=== PATIENT | male | born 1965 | race Hispanic/Latino ===

== ENCOUNTER 2017-09-30 06:57 | Day surgery (SDC) | payer MEDICAID ==
[~2017-09-30] VITALS: Ht 167.6 cm; Wt 69.7 kg
[~2017-09-30 06:57] MED LIST: SODIUM CHLORIDE 0.9% 1000ML 1,000 ML IV ONE
[2017-09-30 07:07] VITALS: BP 149/79
[2017-09-30] MEDS ORDERED: PROPOFOL 10 MG/ML 20ML VIAL IV ONE (08:49)
[2017-09-30] MEDS ORDERED: SIMV10TA6 PO (09:10)
[2017-09-30] MEDS ORDERED: FOLI1TAB85 PO (09:10)
[2017-09-30] MEDS ORDERED: CHOL200016 PO (09:10)
[2017-09-30] MEDS ORDERED: ASPI-1012 PO ×2 (09:10)
[2017-09-30] MEDS ORDERED: GLIP10TA9 PO (09:10)
[2017-09-30] MEDS ORDERED: ACET-66 PO (09:10)
[2017-09-30] MEDS ORDERED: BISA5TAB12 PO (09:10)
[2017-09-30] MEDS ORDERED: OMEP40CA37 PO (09:10)
[2017-09-30] MEDS ORDERED: LINA5TAB PO (09:10)
[2017-09-30] MEDS ORDERED: KETO5DRO82 OP (09:10)
[2017-09-30] MEDS ORDERED: LEVO75TA10 PO (09:10)
[2017-09-30] MEDS ORDERED: METF500T6 PO ×2 (09:10)
[2017-09-30] MEDS ORDERED: FERS325 PO (09:10)
[2017-09-30] MEDS ORDERED: PRED5DRO17 OP (09:10)
[2017-09-30 09:21] VITALS: BP 128/72
== END 2017-09-30 09:45 | disposition home or self-care (01) ==
LOC: DAH 06:57
PROVIDERS: ATTEND Internal Medicine
DX: D12.4 Benign neoplasm of descending colon (principal); K57.30 Diverticulosis of large intestine without perforation or abscess without bleeding; K31.9 Disease of stomach and duodenum, unspecified; K29.50 Unspecified chronic gastritis without bleeding; E78.00 Pure hypercholesterolemia, unspecified; Z79.899 Other long term (current) drug therapy; Z79.84 Long term (current) use of oral hypoglycemic drugs; Z79.82 Long term (current) use of aspirin
CPT/HCPCS: 43239; 45380; 82948; 88305; 88313; 88342; A4606; J2704; J7030